=== PATIENT | male | born 2000 | race African-American/Black ===

== ENCOUNTER 2020-09-23 12:55 | Emergency (ER) | payer SELFPAY ==
[~2020-09-23] VITALS: Ht 170.1 cm; Wt 86.1 kg
--- NOTE | 2020-09-23 15:30 | ED General ---
General Chief Complaint: Cough/Cold/Flu Symptoms Stated Complaint: NO TASTE/SMELL;MIGRAINE;NAUSEA Nursing Triage Note: Pt c/o migraine on Saturday. Then, pt lost smell and taste on . Pt reports migraine has now resolved, denies fever or COVID exposure. Source of Information: Patient Exam Limitations: No Limitations (PEDRO CANTU APRN) History of Present Illness Date Seen by Provider: Sep 23, 2020 Time Seen by Provider: 15:29 Initial Comments This is a 20-year-old male who presents to the ER with complaints of loss of taste/smell over the past 2 days. States approximately 4 days ago he had a migraine but this is since resolved. He has no known Covid exposures. Has not had any Covid vaccines. Denies any significant past medical history. Denies fever, chills, cough, shortness of breath, chest pain, nausea, vomiting, abdominal pain. (PEDRO CANTU APRN) Allergies and Home Medications Patient Home Medication List Home Medication List Reviewed: Yes (PEDRO CANTU APRN) Review of Systems Review of Systems Constitutional: see HPI EENTM: see HPI Respiratory: no symptoms reported Cardiovascular: no symptoms reported Gastrointestinal: no symptoms reported Genitourinary: no symptoms reported Musculoskeletal: no symptoms reported Skin: no symptoms reported Psychiatric/Neurological: No Symptoms Reported Hematologic/Lymphatic: No Symptoms Reported Immunological/Allergic: no symptoms reported (PEDRO CANTU APRN) Past Ggcazvr-Swjvbb-Mzviad Hx Patient Social History Tobacco Use?: No Substance use?: No Alcohol Use?: Yes Alcohol Frequency: Once in a while Pt feels they are or have been: No (PEDRO CANTU APRN) Physical Exam Vital Signs Vital Signs - First Documented (TISHA ACUÑA MD) Vital Signs Capillary Refill : Less Than 3 Seconds (PEDRO CANTU APRN) Height, Weight, BMI Height: '" Weight: lbs. oz. kg; 29.00 BMI Method: General Appearance: No Apparent Distress, WD/WN Eyes: Bilateral Eye Normal Inspection, Bilateral Eye EOMI HEENT: PERRL/EOMI, Normal ENT Inspection, Pharynx Normal, Moist Mucous Membranes Neck: Full Range of Motion, Normal Inspection, Supple Respiratory: Lungs Clear, Normal Breath Sounds, No Accessory Muscle Use Cardiovascular: Regular Rate, Rhythm, No Murmur Gastrointestinal: Normal Bowel Sounds, Non Tender, Soft Back: Normal Inspection Extremity: Normal Inspection, Normal Range of Motion Neurologic/Psychiatric: Alert, Oriented x3, No Motor/Sensory Deficits, Normal Mood/Affect Skin: Normal Color, Warm/Dry (PEDRO CANTU APRN) Progress/Results/Core Measures Suspected Sepsis SIRS Temperature: Pulse: 64 Respiratory Rate: 16 Blood Pressure 130 /84 Mean: 99 (PEDRO CANTU APRN) Results/Orders Lab Results Laboratory Tests Test 09/23/20 15:20 Range/Units Influenza Type A (RT-PCR) Not Detected Not Detecte Influenza Type B (RT-PCR) Not Detected Not Detecte SARS-CoV-2 RNA (RT-PCR) Detected H Not Detecte (TISHA ACUÑA MD) My Orders Orders - TISHA ACUÑA MD Covid 19 Inhouse Test (09/23/20 13:01) Influenza A And B By Pcr (09/23/20 13:01) (TISHA ACUÑA MD) Vital Signs/I&O 09/23/20 09/23/20 09/23/20 15:23 15:23 17:36 Temp 37.0 37.0 Pulse 64 64 Resp 16 16 B/P (MAP) 130/84 (99) 130/84 (99) Pulse Ox 95 95 O2 Delivery Room Air Room Air Room Air (TISHA ACUÑA MD) Vital Signs/I&O Capillary Refill : Less Than 3 Seconds (PEDRO CANTU APRN) Blood Pressure Mean: 99 Departure Impression Primary Impression: COVID-19 Disposition: 01 HOME, SELF-CARE Condition: Stable Departure-Patient Inst. Decision time for Depature: 16:31 (PEDRO CANTU APRN) Patient Instructions: COVID-19 Overview Add. Discharge Instructions: Plan: 1. Quarantine at home for the next 10 days. 2. May take Tylenol or Ibuprofen as needed for pain/fever. 3. May take Vitamin D and Zinc over the counter per package instructions. 4. Return if you become short of breath, chest pain, or any other new or concerning symptoms. All discharge instructions reviewed with patient and/or family. Voiced understanding. ATTENDING PHYSICIAN NOTE: I was physically present as attending physician in the emergency department during the care of this patient, but I was not directly involved in the decision making or delivery of care for this patient. (TISHA ACUÑA MD) PEDRO CANTU APRN Sep 23, 2020 15:29 TISHA ACUÑA MD Sep 24, 2020 14:51
[2020-09-23 17:36] VITALS: BP 130/84
== END 2020-09-23 17:36 | disposition home or self-care (01) ==
LOC: ER 12:58
DX: U07.1 COVID-19 (principal)
CPT/HCPCS: 87636; 99282

== ENCOUNTER 2021-11-18 16:06 | Emergency (ER) | payer SELFPAY ==
[~2021-11-18] VITALS: Ht 165 cm; Wt 81.6 kg
--- NOTE | 2021-11-18 16:44 | ED EENT ---
History of Present Illness General Chief Complaint: COVID19 Suspect/Confirmed Stated Complaint: SORE THROAT/HEADACHE Nursing Triage Note: SATURDAY/SATURDAY STARTED WITH A SORE THROAT, DENIES COUGH OR FEVER. STATES THROAT FEELS SWOLLEN. Source: patient Exam Limitations: no limitations (JOSE ANGEL BRADY APRN) History of Present Illness Date Seen by Provider: Nov 18, 2021 Time Seen by Provider: 16:30 Initial Comments Patient is a previously healthy 21 yo M who presents to the ED with sore throat that began a few days ago. He states he has also had some nasal congestion. He denies inability to swallow, inability to turn neck, muffled voice. No fever per patient. No known sick contacts. He has not taken anything for the symptoms today. Location: throat Prearrival Treatment: no prearrival treatment Associated Symptoms: No cough, No drooling, No fever; nasal c ongestion/drainage, sore throat (JOSE ANGEL BRADY APRN) Allergies and Home Medications Allergies Coded Allergies: No Known Drug Allergies (Unverified , 11/18/21) Patient Home Medication List Home Medication List Reviewed: Yes (JOSE ANGEL BRADY APRN) Review of Systems Review of Systems Constitutional: no symptoms reported Eyes: No Symptoms Reported Ears: No Symptoms Reported Nose: congestion Throat: pain Respiratory: no symptoms reported (JOSE ANGEL BRADY APRN) Physical Exam Vital Signs Vital Signs - First Documented 11/18/21 16:15 Temp 38.7 Pulse 110 Resp 16 B/P (MAP) 112/71 (85) Pulse Ox 98 O2 Delivery Room Air (TISHA ACUÑA MD) Height, Weight, BMI Height: '" Weight: lbs. oz. kg; 29.00 BMI Method: General Appearance: WD/WN, no apparent distress Mouth/Throat: tonsillar exudate, tonsillar swelling; No trismus, No uvula swelling, No voice changes Neck: non-tender, full range of motion, supple, normal inspection, lymphadenopathy (R), lymphadenopathy (L) Cardiovascular: regular rate, rhythm, no edema, no gallop, no JVD, no murmur Respiratory: chest non-tender, lungs clear, normal breath sounds, no respiratory distress, no accessory muscle use Gastrointestinal: normal bowel sounds, non tender, soft, no organomegaly, no pulsatile mass, tenderness, spleenomegaly Neurologic/Psychiatric: nailer machine II-XII nml as tested, no motor/sensory deficits, alert, normal mood/affect, oriented x 3 Skin: normal color, warm/dry (JOSE ANGEL BRADY APRN) Progress/Results/Core Measures Results/Orders Lab Results Laboratory Tests Test 11/18/21 16:19 Range/Units Influenza Type A (RT-PCR) Not Detected Not Detecte Influenza Type B (RT-PCR) Not Detected Not Detecte SARS-CoV-2 RNA (RT-PCR) Not Detected Not Detecte Group A Streptococcus Screen NEGATIVE NEGATIVE (TISHA ACUÑA MD) Medications Given in ED Current Medications Medications Dose Ordered Sig/Cyndee Route Start Time Stop Time Status Last Admin Dose Admin Ibuprofen 600 mg ONCE ONCE PO 11/18/21 16:45 11/18/21 16:46 DC 11/18/21 17:23 600 MG (TISHA ACUÑA MD) Vital Signs/I&O 11/18/21 11/18/21 16:15 18:00 Temp 38.7 38.7 Pulse 110 94 Resp 16 16 B/P (MAP) 112/71 (85) 110/72 Pulse Ox 98 99 O2 Delivery Room Air Room Air (TISHA ACUÑA MD) Blood Pressure Mean: 85 Progress Progress Note : Progress Note Patient is nontoxic and well hydrated on exam. Vital signs are reassuring. 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 Patient tolerated ibuprofen. COVID, influenza, and strep are all negative. Will give patient a dose of decadron to assist with symptoms. Will d/c home with recs for supportive care and follow-up with PCP for persistent symptoms. Return precautions for urgent symptomology discussed. Patient verbalized understanding. (JOSE ANGEL BRADY APRN) Departure Impression Primary Impression: Acute viral pharyngitis Disposition: 01 HOME, SELF-CARE Condition: Stable Departure-Patient Inst. Decision time for Depature: 17:45 (JOSE ANGEL BRADY APRN) Referrals: NO,LOCAL PHYSICIAN (PCP/Family) Primary Care Physician Patient Instructions: Viral Pharyngitis (DC) ATTENDING PHYSICIAN NOTE: I was physically present as attending physician in the emergency department du ring the care of this patient, but I was not directly involved in the decision making or delivery of care for this patient. (TISHA ACUÑA MD) JOSE ANGEL BRADY APRN Nov 18, 2021 16:44 TISHA ACUÑA MD Nov 18, 2021 20:03
[2021-11-18] MEDS ORDERED: IBUPROFEN 600 MG (MOTRIN) TAB PO ONE (16:45)
[2021-11-18] MEDS ORDERED: dexAMETHasone 6 MG TAB (DECADRON) PO SCH (17:45)
[2021-11-18 18:00] VITALS: BP 110/72
== END 2021-11-18 18:02 | disposition home or self-care (01) ==
LOC: EDUNIT# 16:06 → ER 16:10
DX: J02.8 Acute pharyngitis due to other specified organisms (principal); Z20.822 Contact with and (suspected) exposure to COVID-19
CPT/HCPCS: 87430; 87636; 99283